=== PATIENT | male | born 1945 | race Caucasian/White ===

== ENCOUNTER 2016-11-14 08:03 | Inpatient (IN) | payer MEDICARE, OTHER ==
[2016-11-02 13:45] LABS: BASOPHILS 0.6 %; BASOPHILS ABSOLUTE 0.03 10/3/uL (0.0-0.16); EOSINOPHILS 2.5 %; EOSINOPHILS ABSOLUTE 0.13 10/3/uL (0.0-0.53); HEMATOCRIT 39.3 % (40.0-51.0); HEMOGLOBIN 13.3 g/dL (13.6-17.8); IMMATURE GRANULOCYTES 0.4 %; IMMATURE GRANULOCYTES ABSOLUTE 0.02 10/3/uL (0.0-0.11); LYMPHOCYTES ABSOLUTE 2.04 10/3/uL (0.67-4.30); MEAN CORPUS HGB CONC 33.8 g/dL (32.0-36.0); MEAN CORPUSCULAR HEMOGLOB 29.6 pg (26.0-34.0); MEAN CORPUSCULAR VOLUME 87.5 fL (80-100); MEAN PLATELET VOLUME 9.8 fL (9.2-13.0); MONOCYTES 11.2 %; MONOCYTES ABSOLUTE 0.57 10/3/uL (0.21-1.20); NEUTROPHILS 45.3 %; NEUTROPHILS ABSOLUTE 2.31 10/3/uL (2.02-8.40); PLATELET COUNT 155 10/3/uL (150-400); RBC DISTRIBUTION WIDTH 15.2 % (12.0-16.0); RED CELL COUNT 4.49 10/6/uL (4.7-6.1); WHITE BLOOD CELLS 5.1 10/3/uL (4.5-10.5)
[2016-11-02 13:47] LABS: MANUAL DIFF NO %
[2016-11-02 13:52] LABS: INTERNATIONAL NORMAL RATI 1.1 UNITS (-); PROTIME (NOT ORD) 13.6 SEC (12.0-14.5)
[2016-11-02 14:03] LABS: ALBUMIN 3.5 G/DL (3.5-5.0); BUN (BLOOD UREA NITROGEN) 13 MG/DL (6-23); CALCIUM, SERUM 8.4 MG/DL (8.5-10.4); CHLORIDE, SERUM 109 MMOL/L (96-112); CO2 (CARBON DIOXIDE) 25 MMOL/L (24-34); CREATININE 0.98 MG/DL (0.70-1.30); GFR AFRICAN AMERICAN 90 ML/MIN (>=60); GFR NON AFRICAN AMERICAN 77 ML/MIN (>=60); GLOBULIN 3.5 G/DL (2.5-4.1); GLUCOSE, SERUM 105 MG/DL (60-99); IRON BINDING CAPACITY 358 MCG/DL (250-450); POTASSIUM, SERUM 3.9 MMOL/L (3.5-5.3); SGOT(AST) 34 U/L (5-40); SGPT(ALT) 47 U/L (5-65); SODIUM, SERUM 143 MMOL/L (135-148); TOTAL BILIRUBIN 0.5 MG/DL (0-1.2)
[2016-11-02 14:06] LABS: ALKALINE PHOSPHATASE 102 U/L (45-117)
[2016-11-10 16:08] LABS: ASCORBIC ACID (UR NOT ORDER) NEG (NEG); BILIRUBIN, URINE NEGATIVE (NEG); KETONE, URINE NEGATIVE (NEG); LEUKOCYTE ESTERASE(NOT OR NEG (NEG); WBC (NOT ORDERED) (RFLEX) < 1 (0-5)
--- NOTE | ~2016-11-14 | DS ---
Discharge Summary [facility] [address] [place]. [address] NAME: ALTAF SANDERS : 45 STATUS : DIS IN PAT#: [id number] AGE: 71 ADM/REG DATE : 11/14/16 MR#: [id number] REPORT SERV DATE: 11/29/16 DICTATED BY: CECILE TORRES DATE: 11/28/16 REPORT STATUS : Draft TRANSCRIBED BY: ANNA DATE: 11/28/16 Data Collection from hospitalization DISCHARGE DIAGNOSES: 1. Coronary artery disease, status post coronary artery bypass. 2. Aortic stenosis, status post aortic valve replacement. 3. Hypertension. 4. Hyperlipidemia. 5. Gastroesophageal reflux disease. CONSULTATIONS: Dr. Karla Du and Dr. Sahu. PROCEDURE: Coronary artery bypass grafting x5 with LANDRUM to the LAD, reverse saphenous vein graft placed to the ramus intermedius, reverse saphenous vein graft placed to the second obtuse marginal, reverse saphenous vein graft sequenced to the distal right coronary artery and posterior descending vessels; aortic valve replacement using a 25 mm pericardial valve(Trifecta); endoscopic vein harvest saphenous vein from the left side; transesophageal echocardiography 11/14/2016. PATHOLOGY: Aortic valve leaflets-aortic valve leaflets with extensive thickening and calcifications. Inflammatory vegetations not present. DISCHARGE MEDICATIONS: Aspirin 81 mg daily, Lipitor 40 mg at bedtime, vitamin B12 of 1000 mcg sublingually daily, Lasix 40 mg daily, glucosamine chondroitin one tablet daily, Lopressor 12.5 mg twice a day, red yeast as instructed, Nitrostat 0.4 mg sublingually as needed, Prilosec 20 mg twice a day, K-Dur 20 mEq daily, Ultram 50 mg every four hours as needed, CoQ10 one tablet daily, Coumadin 6 mg every evening. CONDITION ON DISCHARGE: Stable. DISPOSITION: The patient was discharged home on an 1800-calorie cardiac/diabetic diet with activities as instructed. He would follow up with [facility] 01/19/2017 and 11/24/2016. He would follow up with Dr. Greg Oneal 12/23/2016. He would follow up with Dr. Agnes Shah 12/23/2016 and would follow up at the [facility] 11/21/2016. HOSPITAL COURSE: This is a 71-year-old man who developed some dyspnea and exertional type anginal symptoms. He recently had a stress test that showed moderate abnormality. He had undergone a cardiac catheterization which demonstrated significant three-vessel coronary artery disease. He was also found to have at least moderate aortic valve stenosis with a gradient across the valve of 35 mmHg and a valve area estimated at 1.1 sq cm. Because of the anginal symptoms and dyspnea, we were asked to see the patient for possible coronary artery bypass grafting and possible aortic valve replacement. We discussed this operation at length with the patient and his , and it was agreed to proceed. He was admitted to the hospital at this time for further evaluation and treatment. Upon admission, he was taken to the operating room where he underwent the above-mentioned procedure. He tolerated this well. There were no complications. Postoperatively, he was seen by Dr. Loyda Sahu. The patient was still intubated and sedated. He was on Levophed. Discharge Summary [address] [address] NAME: ALTAF SANDERS : 45 STATUS : DIS IN PAT#: [id number] AGE: 71 ADM/REG DATE : 11/14/16 MR#: [id number] REPORT SERV DATE: 11/29/16 DICTATED BY: CECILE TORRES DATE: 11/28/16 REPORT STATUS : Draft TRANSCRIBED BY: ANNA DATE: 11/28/16 On postop day 1, he was up sitting in a chair. He did have some bronchial breath sounds. He had no edema. Incisions looked okay, and nitroglycerin drip was stopped. He was given Lopressor. Chest tubes were removed. He had typical chest pain. We encouraged him to ambulate as tolerated. He was seen by Dr. Karla Du regarding postoperative hyperglycemia. He does not have a history of diabetes. He was requiring three-six units of insulin hourly. He said that he does not have any history of diabetes, and his hemoglobin A1c was 5.8 on 11/02/2016. He is not on any antidiabetic medications. We did expect his sugar to normalize. He was going to be transitioned to Levemir, and we would stop insulin infusion 1 hour after Levemir was given. He would be placed on level 2 sliding scale NovoLog before meals and at bedtime. We would monitor his blood sugar on a daily basis. The patient was told that we expected his blood sugar to normalize over the next week. Blood pressure was currently under control. On 11/16/2016, he was ambulating in his room without difficulty. White count was 17.7. He had no lower extremity edema. His incisions looked okay. Warfarin was started. IV Lasix was given. His sugar was under better control. Level 3 sliding scale insulin was being provided. Over the next couple of days, discharge planning was performed. His lungs were clear. He had some bruising along the vein harvest site. Leukocytosis was improving. Discharge planning was performed. He is going to be placed on a diabetic diet at home. There was no evidence of diabetes mellitus at this time. On 11/18/2016, he looked good. His lungs were clear. He was in a normal sinus rhythm. He continued to have some serosanguineous drainage from the left vein harvest site. He had minimal lower extremity edema. Discharge instructions were given. Due to his improved and stable condition, he was discharged home with the above-stated instructions. Information collected by: Marilyn Woodruff I submit the above information as my discharge summary. TG/MODL Cecile Torres M.D. / [id number] CC: Jake Bryant M.D.
--- NOTE | ~2016-11-14 | CN ---
Consultation Report [facility] [address] [facility] [place]. [address] NAME: ALTAF SANDERS : 45 STATUS : ADM IN [facility]#: [id number] AGE: 71 ADM/REG DATE : 11/14/16 MR#: [id number] REPORT SERV DATE: 11/15/16 DICTATED BY: DORINA HUMPHRIES DATE: 11/15/16 REPORT STATUS : Draft TRANSCRIBED BY: MODL DATE: 11/15/16 CONSULTATION DATE OF CONSULTATION: 11/15/2016 REASON FOR CONSULT: Postoperative hyperglycemia. The patient is a very pleasant 71-year-old male, who is status post coronary artery bypass grafting per Dr. Torres on 11/14/2016. He developed postoperative hyperglycemia. He does not have a history of diabetes. The patient is currently on insulin infusion per postsurgical ICU protocol. He requires 3-6 units of insulin hourly. He said that he does not have any history of diabetes and his hemoglobin A1c have been 5.8 on 11/02/2016. He is not on any antidiabetic medications. PAST MEDICAL HISTORY: Known for history of hypertension, hyperlipidemia, gastroesophageal reflux disease. PAST SURGICAL HISTORY: Includes appendectomy, cholecystectomy, previous bilateral knee surgeries, and Achillis tendon repair. ALLERGIES: HE IS INTOLERANT OF ALL NARCOTICS. HOME MEDICATIONS: Include Norvasc 2.5 mg daily, aspirin 81 mg daily, Lipitor 40 mg daily, vitamin B12 1000 mcg sublingually, glucosamine chondroitin one tablet daily, lisinopril 20 mg daily, Monascus red yeast once a day, nitroglycerin 0.4 mg sublingually as needed for chest pain, omeprazole 20 mg daily, coenzyme Q10 one tablet p.o. daily. FAMILY HISTORY: Father from complications of emphysema and COPD. Mother of Alzheimer disease complication. Grandmother at the older age had mild diabetes. SOCIAL HISTORY: No alcohol. No recreational drug use. No smoking. PHYSICAL EXAMINATION: GENERAL: Well-nourished, well-developed male, not in acute distress, resting quietly. VITAL SIGNS: Blood pressure 155/82, temperature 97.9, heart rate 86, respirations 16, and oxygen saturation 97% on 3 L nasal cannula. HEENT: Head is atraumatic, normocephalic. Conjunctivae clear. Pupils are equal and reactive to light and accommodation. Extraocular muscles are intact. NECK: Supple. Trachea is midline. No supraclavicular or cervical lymphadenopathy. LUNGS: Clear to auscultation bilaterally. Normal respiratory effort. CARDIOVASCULAR SYSTEM: Regular rate and rhythm. Point of maximal impulse not displaced. ABDOMEN: Soft, nontender, nondistended. Positive normoactive bowel sounds. EXTREMITIES: No clubbing, cyanosis, or edema. Consultation Report [address] [place]. [address] NAME: ALTAF SANDERS : 45 STATUS : ADM IN [facility]#: [id number] AGE: 71 ADM/REG DATE : 11/14/16 MR#: [id number] REPORT SERV DATE: 11/15/16 DICTATED BY: DORINA HUMPHRIES DATE: 11/15/16 REPORT STATUS : Draft TRANSCRIBED BY: ANNA DATE: 11/15/16 SKIN: Normal color and turgor. PSYCHIATRIC: Normal mood and affect. LABORATORY RESULTS: Blood sugar 140, 144, 177, 180, 164; currently on 3 units of regular insulin infusion hourly. Sodium 146, potassium 4.3, chloride 114, carbon dioxide 23, BUN 18, creatinine 0.97, blood sugar 180. Hemoglobin A1c 5.8 on 11/02/2016. ASSESSMENT AND PLAN: 1. This is postoperative hyperglycemia. No evidence of diabetes. This was discussed with family and explained that blood sugar becomes elevated secondary to surgery, but we expect sugar to normalize. We will currently transition him to Levemir 15 units one dose now, and we will stop insulin infusion 1 hour after Levemir given. We will put him on a NovoLog level 2 sliding scale before meals and at bedtime, and we will monitor his blood sugar on a daily basis. The patient was told that we are expecting his blood sugars to normalize over the next week. 2. Hypertension. Blood pressure currently is under control. MG/MODL Dorina Humphries M.D. / [id number] CC: Nikhil Torres M.D.
--- NOTE | ~2016-11-14 | OP ---
Record Of Operation [facility] [address] [place]. [address] NAME: ALTAF SANDERS : 45 STATUS : ADM IN PAT#: [id number] AGE: 71 ADM/REG DATE : 11/14/16 MR#: [id number] REPORT SERV DATE: 11/14/16 DICTATED BY: CECILE TORRES DATE: 11/14/16 REPORT STATUS : Draft TRANSCRIBED BY: MODL DATE: 11/14/16 DATE OF PROCEDURE: 11/14/2016 PREOPERATIVE DIAGNOSES: 1. Coronary artery disease with angina and dyspnea. 2. Aortic valve stenosis. 3. Hypertension. 4. Hyperlipidemia. 5. Gastroesophageal reflux disease. POSTOPERATIVE DIAGNOSES: 1. Coronary artery disease with angina and dyspnea. 2. Aortic valve stenosis. 3. Hypertension. 4. Hyperlipidemia. 5. Gastroesophageal reflux disease. PROCEDURES PERFORMED: 1. Coronary artery bypass grafting x5, left internal mammary artery placed to the left anterior descending, reverse saphenous vein graft placed to the ramus intermedius, reverse saphenous vein graft placed to the second obtuse marginal, reverse saphenous vein graft sequenced to the distal right coronary artery and posterior descending vessels. 2. Aortic valve replacement using a 25 mm pericardial valve (Trifecta). 3. Endoscopic vein harvest, saphenous vein from the left thigh. 4. Transesophageal echocardiography. ASSISTANTS: Joel Malone, Skye Busch, and Kelley Gabriel. ANESTHESIA: General with Dr. Crawford. INDICATIONS: This is a 71-year-old active gentleman who is still employed. He has developed some dyspnea and exertional-type anginal symptoms. He recently had a stress test that showed moderate abnormality. He underwent a cardiac catheterization, which demonstrated significant three-vessel coronary artery disease. He was also found to have at least moderate aortic valve stenosis with a gradient across the valve of 35 mmHg and a valve area estimated 1.1 cm2. Because of the anginal symptoms and dyspnea, we were asked to see the patient for possible coronary artery bypass grafting and possible aortic valve replacement. We discussed this operation at length with the patient and his and after discussing the operations, its indication and risks, they wished to proceed. STS predicted mortality of 1.7%, morbidity-mortality of 15.5% were shared with the family. FINDINGS AT OPERATION: 1. Cross-clamp time 123 minutes; total pump time 146 minutes. 2. The LAD was a 2 mm moderately diseased vessel. A 2.5 mm LANDRUM was anastomosed to it with good runoff. Record Of Operation [facility] [address] [place]. [address] NAME: ALTAF SANDERS : 45 STATUS : ADM IN PAT#: [id number] AGE: 71 ADM/REG DATE : 11/14/16 MR#: [id number] REPORT SERV DATE: 11/14/16 DICTATED BY: CECILE TORRES DATE: 11/14/16 REPORT STATUS : Draft TRANSCRIBED BY: MODKeyla DATE: 11/14/16 3. The ramus intermedius was 1.5 mm and mildly diseased. A 3.5 mm RSVG was anastomosed to it with good runoff. 4. The second obtuse marginal vessel was 1.75 mm and mildly diseased. A 3-4 mm RSVG was anastomosed to it with good runoff. 5. The distal right coronary artery was 2.5 mm and moderately diseased. A 4 mm RSVG was anastomosed to it in a [id number] fashion with good runoff as a sequential graft. 6. The posterior descending artery was 2 mm and moderately diseased. The end of the same 4 mm RSVG was anastomosed to it with good runoff. 7. The vein quality was good and all grafts had good Doppler signal at the end of the case. The vein from the right leg was unacceptably small. 8. The aortic valve had 3 leaflets that were heavily calcified. Coronary anatomy was normal. There was no aortic root dilatation. 9. A 25 mm Trifecta pericardial valve was implanted. 17 cor-knots were placed to secure the valve in place. 10.LYN at the end of the operation demonstrated good ventricular function with a prosthetic valve that was well seated and no perivalvular leak. There was minimal mitral insufficiency. PATHOLOGIC SPECIMENS: None. DESCRIPTION OF PROCEDURE: The patient was brought to the operative suite, where general anesthesia was induced and airway secured with an endotracheal tube. Lines were secured by Anesthesia. Schroeder catheter was placed. The patient's chest, abdomen, groin, and legs prepped with Hibiclens and ChloraPrep and draped with Ioban sterile sheets. LYN probe was placed by Dr. Chacon and examination carried out in my attendance. The results are discussed above. The saphenous vein was harvested from the left leg using endoscopic technique. Briefly, the vein was initially cut down upon through the right knee at 1-2 cm medially. Here, we were able to find a saphenous vein, but it was very small and multiple branches. Therefore, we converted to the left thigh harvest. A 1-2 cm incision was made along the medial aspect of the left knee. Then, using VasoView trocars, the vessel was dissected from the surrounding subcutaneous tissue and fat. The side branches were identified, ligated, and divided with cautery. Once adequate length of vein had been dissected, a counterincision was made up in the groin. The vein was ligated, divided, and brought through the knee incision. The vein quality was good. The leg was made hemostatic and closed in layers with absorbable suture and skin was closed in a subcuticular fashion. Then, a midline sternal incision was made and sternum opened with saw. Left hemithorax was elevated and the endothoracic fascia was incised. Side branches of the MITA were clipped and divided. Once the MITA was completely dissected, the patient was anticoagulated with heparin. Chest tube was placed in left pleural cavity. The MITA was clipped and divided distally. There was good flow through the MITA and its pedicle was infiltrated with papaverine. Next, the Iron retractor was placed in the pericardium from the innominate vein. The diaphragm was T'd and tacked to side of chest wall. Cannulation pursestring sutures were Record Of Operation [address] [place]. [address] NAME: ALTAF SANDERS : 45 STATUS : ADM IN [facility]#: [id number] AGE: 71 ADM/REG DATE : 11/14/16 MR#: [id number] REPORT SERV DATE: 11/14/16 DICTATED BY: CECILE TORRES DATE: 11/14/16 REPORT STATUS : Draft TRANSCRIBED BY: MODL DATE: 11/14/16 placed and cannulation was carried out in a routine manner. A retrograde cardioplegia cannula was placed in the coronary sinus. When all was in readiness, the patient was placed on cardiopulmonary bypass. Distal targets were marked out on the heart as described in the findings. Then, a heart support was placed. The aorta was crossclamped and an initial dose cold blood cardioplegia solution was given in a combination of antegrade and retrograde fashion in a retrograde manner at 20- to 25-minute intervals during the remainder of the cross-clamp period. Following the first dose cardioplegia, the heart was positioned for the PDA graft. Arteriotomy was made. The end of the vein graft was trimmed and anastomosed to it with 7-0 Prolene. The vein graft was then measured back to the distal RCA where another small arteriotomy was made. The corresponding venotomy was made and an end-to-side saphenous coronary anastomosis was constructed with 7-0 Prolene. This sequential vein graft was then measured to the right side of the ascending aorta where it was divided. We then positioned the heart for the obtuse marginal graft. Another arteriotomy was made, and the vein graft was trimmed and anastomosed to it with 7-0 Prolene. The vein graft was measured to the left side of the ascending aorta where it was divided. Another dose of cardioplegia was given, and we positioned the heart for the ramus intermedius graft. Another arteriotomy was made, and the vein graft was trimmed and anastomosed to it with 7-0 Prolene. This vein graft was then measured to the left side of the ascending aorta where it was divided. We then positioned the heart for the LAD graft. Arteriotomy was made in the mid LAD. The MITA was brought out of the left chest through a notch in the pericardium over the pulmonary artery. The MITA was opened and anastomosed to the LAD with running suture of 8-0 Prolene. The endothoracic fascia was tacked to the epicardium. Another dose of cardioplegia was given and the heart support was removed. An LV vent was then placed through the right superior pulmonary vein and directed into the left ventricle through the mitral valve. We next turned our attention to the aortic valve. Hockey-stick type aortotomy incision was made. The aortic valve was inspected. It had three leaflets that were heavily calcified. Coronary anatomy was normal, and there was no aneurysm formation. Aortic leaflets were excised and the annulus debrided of all calcific material. We then irrigated the ascending aorta and left ventricle copiously with iced saline to remove any particulate matter. The valve was sized and a 25 mm pericardial valve was selected. Interrupted pledgeted sutures of 2-0 Tycron were placed circumferentially about the aortic valve annulus. Pledgets were on the ventricular side. The valve was brought out of the field. Sutures were passed through the sewing cuff of the valve which was lowered into position. Each of the sutures were individually secured and divided using a Cor-Knot device. A total of 17 cor-knots were utilized. The aortic valve appeared to be well seated. The coronaries were not obstructed. Warming was begun. The aortotomy incision was closed in a two-layered fashion with running pledgeted suture of 5-0 Prolene. Then, three 4.5 mm punch aortotomies were made. Each of the proximal ends of the vein grafts were anastomosed to these sites with running sutures of Record Of Operation [facility] [address] [facility] [place]. [address] NAME: ALTAF SANDERS : 45 STATUS : ADM IN [facility]#: [id number] AGE: 71 ADM/REG DATE : 11/14/16 MR#: [id number] REPORT SERV DATE: 11/14/16 DICTATED BY: CECILE TORRES DATE: 11/14/16 REPORT STATUS : Draft TRANSCRIBED BY: ANNA DATE: 11/14/16 6-0 Prolene. The patient was placed in Trendelenburg and a final dose of warm blood cardioplegia was given in a retrograde fashion. Ventricular and atrial pacing wires were placed. Following the last dose of cardioplegia and deairing of the aorta, aortic cross clamp was removed. The distal and proximal anastomoses and suture lines were inspected and made hemostatic. Doppler demonstrated good flow through the grafts. The heart was cardioverted using 10 joules of energy and the internal paddles. He was then paced in an atrial fashion, rate of 80. Ventilation was begun and when the heart demonstrated good contractility, it was allowed to fill and eject. When deairing was completed, the patient was taken out of Trendelenburg, the ascending aortic vent removed, and these pursestring sutures were tied and reinforced. The patient was then weaned from cardiopulmonary bypass with minimal inotropic support. The venous cannulas were removed and each pursestring sutures were tied. LYN examination demonstrated good ventricular function with a thickened LV. There was no perivalvular leak. There was minimal mitral insufficiency. Protamine was administered by Anesthesia and following a period of hemodynamic stability, the aortic cannula was removed and each pursestring sutures tied and reinforced. The patient continued to do well and the chest was irrigated copiously with saline. Meticulous hemostasis was obtained. Hemasorb was placed along the cut edge of the sternum. Once hemostasis was assured, the pericardium was draped over the anterior surface of the heart and tacked into position. Doppler demonstrated good flow through the grafts following protamine administration. Chest tubes were placed and sternum reapproximated with 8 sternal wires. The clavipectoral fascia and linea alba were closed in 0 Stratafix. The subcutaneous tissue was closed with 2-0 Stratafix, and skin was closed in a subcuticular fashion. The patient tolerated the procedure well without any complications. Sponge and needle counts were correct. DISPOSITION: The patient was left intubated, sedated, and transported to the intensive care unit in stable condition. EDUARDA/ANNA Cecile Torres M.D. / [id number] CC: Record Of Operation [address] [address] NAME: ALTAF SANDERS : 45 STATUS : ADM IN [facility]#: [id number] AGE: 71 ADM/REG DATE : 11/14/16 MR#: [id number] REPORT SERV DATE: 11/14/16 DICTATED BY: CECILE TORRES DATE: 11/14/16 REPORT STATUS : Draft TRANSCRIBED BY: ANNA DATE: 11/14/16 Jkae Naranjo M.D. Greg Oneal M.D., Ph.D, F.A.C.C.
[~2016-11-14 08:03] MED LIST: ASAB PO; CO Q-10100 MG PO; COQ-10 PO; FISH-EPA1000 MG PO; GLUCCHONDR PO; LIPITOR40 PO; NAP500 PO; NITROSTAT0.4 MG SL; NORV25 PO; PRILO PO; PRIN20 PO; RED YEAS1; RED YEAST RICE PO; VITAMIN B-121000 MC1 SL
[2016-11-14 16:14] LABS: BASOPHILS 0.1 %; BASOPHILS ABSOLUTE 0.02 10/3/uL (0.0-0.16); EOSINOPHILS 0.3 %; EOSINOPHILS ABSOLUTE 0.04 10/3/uL (0.0-0.53); HEMATOCRIT 33.1 % (40.0-51.0); HEMOGLOBIN 11.5 g/dL (13.6-17.8); IMMATURE GRANULOCYTES 0.4 %; IMMATURE GRANULOCYTES ABSOLUTE 0.05 10/3/uL (0.0-0.11); LYMPHOCYTES 12.9 %; LYMPHOCYTES ABSOLUTE 1.81 10/3/uL (0.67-4.30); MANUAL DIFF NO %; MEAN CORPUS HGB CONC 34.7 g/dL (32.0-36.0); MEAN CORPUSCULAR HEMOGLOB 30.3 pg (26.0-34.0); MEAN CORPUSCULAR VOLUME 87.3 fL (80-100); MONOCYTES 3.6 %; NEUTROPHILS 82.7 %; PLATELET COUNT 137 10/3/uL (150-400); RBC DISTRIBUTION WIDTH 14.7 % (12.0-16.0); RED CELL COUNT 3.79 10/6/uL (4.7-6.1)
[2016-11-14 16:24] LABS: INTERNATIONAL NORMAL RATI 1.4 UNITS (-); PARTIAL THROMBO TIME 30.9 SEC (22.5-37.2)
[2016-11-14 16:26] LABS: CALCIUM, SERUM 8.9 MG/DL (8.5-10.4); CHLORIDE, SERUM 113 MMOL/L (96-112); CO2 (CARBON DIOXIDE) 28 MMOL/L (24-34); CREATININE 1.26 MG/DL (0.70-1.30); GFR AFRICAN AMERICAN 66 ML/MIN (>=60); GFR NON AFRICAN AMERICAN 57 ML/MIN (>=60); GLUCOSE, SERUM 118 MG/DL (60-99); POTASSIUM, SERUM 3.7 MMOL/L (3.5-5.3); PROTIME (NOT ORD) 17.3 SEC (12.0-14.5); SODIUM, SERUM 146 MMOL/L (135-148)
[2016-11-14 16:28] LABS: BUN (BLOOD UREA NITROGEN) 17 MG/DL (6-23)
[2016-11-14 21:06] LABS: POTASSIUM, SERUM 4.5 MMOL/L (3.5-5.3)
[2016-11-14 21:49] LABS: CARBOXYHEMOGLOBIN 0.3 % (0-3); DEVICE NC; HCO3 (ACTUAL BICARBONATE) 21.1 MEQ/L (23-27); HEMOBLOGIN CONTENT 13.1 G/DL (14-18); INSTRUMENT SERIAL # 11843; METHEMOGLOBIN 0.6 % (0-3); O2 CONTENT 17.5 VOL% (18-24); OPERATOR ID 13744; PCO2 (CO2 TENSION) 39 MMHG (35-45); PO2 (O2 TENSION) 85 MMHG (79-93); SAMPLE Arterial; pH 7.35 (7.37-7.43)
[2016-11-14 22:10] LABS: HEMATOCRIT 34.8 % (40.0-51.0); HEMOGLOBIN 11.9 g/dL (13.6-17.8)
[2016-11-15 03:36] LABS: BASOPHILS 0 %; EOSINOPHILS 0 %; HEMATOCRIT 33.8 % (40.0-51.0); HEMOGLOBIN 11.5 g/dL (13.6-17.8); IMMATURE GRANULOCYTES 0.3 %; IMMATURE GRANULOCYTES ABSOLUTE 0.05 10/3/uL (0.0-0.11); LYMPHOCYTES 5.6 %; MANUAL DIFF NO %; MEAN CORPUSCULAR HEMOGLOB 30.1 pg (26.0-34.0); MEAN CORPUSCULAR VOLUME 88.5 fL (80-100); MEAN PLATELET VOLUME 10.4 fL (9.2-13.0); MONOCYTES 6.9 %; MONOCYTES ABSOLUTE 1.11 10/3/uL (0.21-1.20); NEUTROPHILS 87.2 %; NEUTROPHILS ABSOLUTE 14.05 10/3/uL (2.02-8.40); PLATELET COUNT 132 10/3/uL (150-400); RED CELL COUNT 3.82 10/6/uL (4.7-6.1); WHITE BLOOD CELLS 16.1 10/3/uL (4.5-10.5)
[2016-11-15 03:41] LABS: INTERNATIONAL NORMAL RATI 1.2 UNITS (-); PROTIME (NOT ORD) 15.1 SEC (12.0-14.5)
[2016-11-15 03:50] LABS: BUN (BLOOD UREA NITROGEN) 18 MG/DL (6-23); CALCIUM, SERUM 8.3 MG/DL (8.5-10.4); CHLORIDE, SERUM 114 MMOL/L (96-112); CREATININE 0.97 MG/DL (0.70-1.30); GFR AFRICAN AMERICAN 91 ML/MIN (>=60); GFR NON AFRICAN AMERICAN 78 ML/MIN (>=60); POTASSIUM, SERUM 4.5 MMOL/L (3.5-5.3); SODIUM, SERUM 146 MMOL/L (135-148)
[2016-11-15 03:52] LABS: CO2 (CARBON DIOXIDE) 23 MMOL/L (24-34); GLUCOSE, SERUM 132 MG/DL (60-99)
[2016-11-15 13:14] LABS: HEMATOCRIT 35.6 % (40.0-51.0); HEMOGLOBIN 11.8 g/dL (13.6-17.8)
[2016-11-15 13:21] LABS: POTASSIUM, SERUM 4.3 MMOL/L (3.5-5.3)
[2016-11-16 05:01] LABS: BASOPHILS 0.1 %; BASOPHILS ABSOLUTE 0.02 10/3/uL (0.0-0.16); EOSINOPHILS 0 %; HEMATOCRIT 33.9 % (40.0-51.0); HEMOGLOBIN 11.4 g/dL (13.6-17.8); IMMATURE GRANULOCYTES 0.3 %; IMMATURE GRANULOCYTES ABSOLUTE 0.06 10/3/uL (0.0-0.11); LYMPHOCYTES 14.9 %; LYMPHOCYTES ABSOLUTE 2.64 10/3/uL (0.67-4.30); MEAN CORPUS HGB CONC 33.6 g/dL (32.0-36.0); MEAN CORPUSCULAR HEMOGLOB 30.3 pg (26.0-34.0); MEAN CORPUSCULAR VOLUME 90.2 fL (80-100); MEAN PLATELET VOLUME 10.4 fL (9.2-13.0); MONOCYTES ABSOLUTE 2.12 10/3/uL (0.21-1.20); NEUTROPHILS 72.7 %; NEUTROPHILS ABSOLUTE 12.87 10/3/uL (2.02-8.40); PLATELET COUNT 108 10/3/uL (150-400); RBC DISTRIBUTION WIDTH 15.7 % (12.0-16.0); RED CELL COUNT 3.76 10/6/uL (4.7-6.1); WHITE BLOOD CELLS 17.7 10/3/uL (4.5-10.5)
[2016-11-16 05:05] LABS: MANUAL DIFF NO %
[2016-11-16 05:15] LABS: BUN (BLOOD UREA NITROGEN) 19 MG/DL (6-23); CALCIUM, SERUM 9.1 MG/DL (8.5-10.4); CREATININE 0.97 MG/DL (0.70-1.30); GFR AFRICAN AMERICAN 91 ML/MIN (>=60); GFR NON AFRICAN AMERICAN 78 ML/MIN (>=60); GLUCOSE, SERUM 178 MG/DL (60-99); POTASSIUM, SERUM 4.4 MMOL/L (3.5-5.3)
[2016-11-16 05:16] LABS: CHLORIDE, SERUM 102 MMOL/L (96-112); CO2 (CARBON DIOXIDE) 28 MMOL/L (24-34); SODIUM, SERUM 135 MMOL/L (135-148)
[2016-11-17 05:39] LABS: HEMATOCRIT 32.5 % (40.0-51.0); HEMOGLOBIN 11.2 g/dL (13.6-17.8); MEAN CORPUS HGB CONC 34.5 g/dL (32.0-36.0); MEAN CORPUSCULAR HEMOGLOB 30.1 pg (26.0-34.0); MEAN PLATELET VOLUME 10.9 fL (9.2-13.0); PLATELET COUNT 99 10/3/uL (150-400); RBC DISTRIBUTION WIDTH 15.7 % (12.0-16.0); RED CELL COUNT 3.72 10/6/uL (4.7-6.1); WHITE BLOOD CELLS 14.9 10/3/uL (4.5-10.5)
[2016-11-17 05:42] LABS: MANUAL DIFF YES %; MEAN CORPUSCULAR VOLUME 87.4 fL (80-100)
[2016-11-17 05:46] LABS: BUN (BLOOD UREA NITROGEN) 16 MG/DL (6-23); CALCIUM, SERUM 8.9 MG/DL (8.5-10.4); CHLORIDE, SERUM 102 MMOL/L (96-112); CO2 (CARBON DIOXIDE) 29 MMOL/L (24-34); CREATININE 0.85 MG/DL (0.70-1.30); GFR AFRICAN AMERICAN 102 ML/MIN (>=60); GFR NON AFRICAN AMERICAN 88 ML/MIN (>=60); SODIUM, SERUM 138 MMOL/L (135-148)
[2016-11-17 05:47] LABS: GLUCOSE, SERUM 135 MG/DL (60-99); POTASSIUM, SERUM 3.4 MMOL/L (3.5-5.3)
[2016-11-17 05:50] LABS: INTERNATIONAL NORMAL RATI 1.2 UNITS (-); PROTIME (NOT ORD) 14.7 SEC (12.0-14.5)
[2016-11-17 06:13] LABS: BAND NEUTROPHILS 2 %; IMMATURE GRANS ABSOLUTE (CALC) 0.15 10/3/uL (0.0-0.11); LYMPHOCYTES 16 %; LYMPHOCYTES ABSOLUTE (CALC) 2.38 10/3/uL (0.67-4.30); METAMYELOCYTES 1 %; MONOCYTES 3 %; MONOCYTES ABSOLUTE (CALC) 0.45 10/3/uL (0.21-1.20); NEUTROPHILS ABSOLUTE (CALC) 11.92 10/3/uL (2.02-8.40); SEGMENTED NEUTROPHIL (0) 78 %; TOTAL NUCLEATED CELLS 100
[2016-11-17 06:14] LABS: PLATELET ESTIMATE DEC (ADEQUATE)
[2016-11-17 06:15] LABS: RBC MORPHOLOGY NORM (NORMAL)
[2016-11-18 05:05] LABS: INTERNATIONAL NORMAL RATI 1.3 UNITS (-); PROTIME (NOT ORD) 16.2 SEC (12.0-14.5)
[2016-11-18 05:07] LABS: BASOPHILS 0.2 %; BASOPHILS ABSOLUTE 0.03 10/3/uL (0.0-0.16); EOSINOPHILS ABSOLUTE 0.25 10/3/uL (0.0-0.53); HEMATOCRIT 32.2 % (40.0-51.0); IMMATURE GRANULOCYTES 1.1 %; IMMATURE GRANULOCYTES ABSOLUTE 0.13 10/3/uL (0.0-0.11); LYMPHOCYTES ABSOLUTE 3.31 10/3/uL (0.67-4.30); MEAN CORPUS HGB CONC 34.2 g/dL (32.0-36.0); MEAN CORPUSCULAR VOLUME 87.7 fL (80-100); MEAN PLATELET VOLUME 10.6 fL (9.2-13.0); MONOCYTES 10.3 %; MONOCYTES ABSOLUTE 1.26 10/3/uL (0.21-1.20); NEUTROPHILS 59.4 %; NEUTROPHILS ABSOLUTE 7.27 10/3/uL (2.02-8.40); PLATELET COUNT 122 10/3/uL (150-400); RBC DISTRIBUTION WIDTH 15.4 % (12.0-16.0); RED CELL COUNT 3.67 10/6/uL (4.7-6.1); WHITE BLOOD CELLS 12.3 10/3/uL (4.5-10.5)
[2016-11-18 05:11] LABS: MANUAL DIFF NO %
[2016-11-18 05:29] LABS: BUN (BLOOD UREA NITROGEN) 16 MG/DL (6-23); CALCIUM, SERUM 8.6 MG/DL (8.5-10.4); CHLORIDE, SERUM 101 MMOL/L (96-112); CO2 (CARBON DIOXIDE) 30 MMOL/L (24-34); CREATININE 0.94 MG/DL (0.70-1.30); GFR AFRICAN AMERICAN 94 ML/MIN (>=60); GFR NON AFRICAN AMERICAN 81 ML/MIN (>=60); GLUCOSE, SERUM 109 MG/DL (60-99); POTASSIUM, SERUM 3.8 MMOL/L (3.5-5.3); SODIUM, SERUM 138 MMOL/L (135-148)
[2016-11-18] MEDS ORDERED: ULTRAM50 PO (11:40)
[2016-11-18] MEDS ORDERED: KDUR20 PO (11:40)
[2016-11-18] MEDS ORDERED: COUMADIN6 MG PO (11:41)
[2016-11-18] MEDS ORDERED: LOP25 PO (11:41)
[2016-11-18] MEDS ORDERED: L40 PO (11:42)
== END 2016-11-18 13:33 | disposition home or self-care (01) | DRG 220 ==
LOC: SDC/OF 08:03 → CVICU 14:49 → 5NO 11-15 13:31
PROVIDERS: Internal Medicine Cardiovascular Disease; Nurse Practitioner Family; Thoracic Surgery (Cardiothoracic Vascular Surgery)
PROC: 06BQ0ZZ Excision of Left Saphenous Vein, Open Approach (ICD-10-PCS; 2016-11-14)
PROC: 5A1221Z Performance of Cardiac Output, Continuous (ICD-10-PCS; 2016-11-14)
PROC: B246ZZ4 Ultrasonography of Right and Left Heart, Transesophageal (ICD-10-PCS; 2016-11-14)
PROC: 021309W Bypass Coronary Artery, Four or More Arteries from Aorta with Autologous Venous Tissue, Open Approach (ICD-10-PCS; principal; 2016-11-14 10:00)
PROC: 02RF08Z Replacement of Aortic Valve with Zooplastic Tissue, Open Approach (ICD-10-PCS; 2016-11-14 10:00)
PROC: 0210099 Bypass Coronary Artery, One Artery from Left Internal Mammary with Autologous Venous Tissue, Open Approach (ICD-10-PCS; 2016-11-14 10:00)
DX: I25.110 Atherosclerotic heart disease of native coronary artery with unstable angina pectoris (principal); I35.0 Nonrheumatic aortic (valve) stenosis; E16.1 Other hypoglycemia; I44.7 Left bundle-branch block, unspecified; E87.6 Hypokalemia; I10 Essential (primary) hypertension; E78.5 Hyperlipidemia, unspecified; K21.9 Gastro-esophageal reflux disease without esophagitis; E78.00 Pure hypercholesterolemia, unspecified; Z98.890 Other specified postprocedural states; Z82.5 Family history of asthma and other chronic lower respiratory diseases; Z88.5 Allergy status to narcotic agent; Z83.3 Family history of diabetes mellitus
CPT/HCPCS: 31720; 36415; 71010; 71020; 80048; 80053; 81001; 82330; 82803; 82805; 82947; 82962; 83036; 83550; 83735; 84132; 84295; 85014; 85018; 85025; 85347; 85610; 85730; 86850; 86900; 86901; 86920; 87641; 88305; 93005; 93312; 93320; 93325; 94002; 94640; 94660; 94770; A9270-GY; C1713; C1725; C1769; C1894; J0690; J1170; J1644; J1940; J2150; J2250; J2370; J2405; J2440; J2720; J2795; J2930; J3010; J3475; J3480; P9045; P9047